=== PATIENT | male | born 1970 | race African-American/Black ===

== ENCOUNTER 2024-04-03 04:23 | Emergency (ER) | payer MEDICAID ==
[~2024-04-03] VITALS: Ht 175.3 cm; Wt 74.5 kg
[2024-04-03 04:39] VITALS: BP 127/81; PULSE 117; RESP 18; TEMP 98.6; O2SAT 95
[2024-04-03] MEDS: IBUPROFEN 600 MG TAB PO ONE (06:16)
[2024-04-03] MEDS ORDERED: AUG875T PO (06:24)
== END 2024-04-03 06:32 | disposition home or self-care (01) ==
LOC: ER 04:23
DX: S41.152A Open bite of left upper arm, initial encounter (principal); W50.3XXA Accidental bite by another person, initial encounter; Y93.89 Activity, other specified; Y92.89 Other specified places as the place of occurrence of the external cause; Y99.8 Other external cause status